=== PATIENT | female | born 1965 | race Two or more races ===

== ENCOUNTER 2018-11-14 06:38 | Day surgery (SDC) | payer OTHER ==
[~2018-11-14] VITALS: Ht 157.5 cm; Wt 53.5 kg
[2018-11-14] VITALS (11 sets, daily range): BP systolic 95–120; BP diastolic 44–80
[~2018-11-14 06:38] MED LIST: ZOLPIDEM TARTRA10 MG ORAL; ceFAZolin 1gm IVPB IVPB ONE; celeBREX 200mg Cap **SURGERY PATIENTS ONLY ORAL ONE; oxyCONTIN 20mg tab ORAL ONE
[2018-11-14] MEDS ORDERED: LR 1000ml 1,000 ML IVLG SCH (07:14)
[2018-11-14] MEDS ORDERED: HYDROcodone/Acetamin 7.5/325 tab ORAL PRN (07:15)
[2018-11-14] MEDS ORDERED: Meperidine 50mg/ml Inj(FOR RIGORS ONLY) IVP PRN (07:15)
[2018-11-14] MEDS ORDERED: Atropine Sulfate 0.4mg/ml inj IVP PRN (07:15)
[2018-11-14] MEDS ORDERED: HYDROcodone/Acetamin 5/325 tab ORAL PRN ×2 (07:15→07:30)
[2018-11-14] MEDS ORDERED: Hydromorphone 0.5mg/0.5ml inj IVP PRN (07:15)
[2018-11-14] MEDS ORDERED: oxyCODONE HCL/Acetaminophen 5/325mg ORAL PRN (07:15)
[2018-11-14] MEDS ORDERED: Midazolam 2mg/2ml Inj IVP PRN (07:15)
[2018-11-14] MEDS ORDERED: Labetalol 5mg/ml 20ml vial IV PRN (07:15)
[2018-11-14] MEDS ORDERED: Metoclopramide 10mg/2ml Inj IVP PRN (07:15)
[2018-11-14] MEDS ORDERED: LORazepam Inj 2mg/ml 1ml IV PRN (07:15)
[2018-11-14] MEDS ORDERED: Ketorolac 30mg Inj IV PRN ×2 (07:15)
[2018-11-14] MEDS ORDERED: Acetaminophen (Non formulary) 100 ML IV ONE (07:15)
[2018-11-14] MEDS ORDERED: DiphenhydrAMINE 50mg/ml Inj IVP PRN (07:15)
[2018-11-14] MEDS ORDERED: fentaNYL 100 mcg/2 mL IV PRN (07:15)
[2018-11-14] MEDS ORDERED: EPINEPHrine 1mg/1ml Amp ONE (07:19)
--- NOTE | 2018-11-14 07:19 | Pre-Procedure Note/Attestation ---
Pre-Procedure Note/Attestation Complete Prior to Procedure Planned Procedure: left Procedure Narrative: knee diagnostic arthroscopy, possible menisectomy, possible synovectomy Indications for Procedure Pre-Operative Diagnosis: left knee internal derangment Attestation I attest that I discussed the nature of the procedure; its benefits; risks and complications; and alternatives (and the risks and benefits of such alternatives ), prior to the procedure, with the patient (or the patient's legal inventory representative). I attest that, if there was a reasonable possibility of needing a blood transfusion, the patient (or the patient's legal inventory representative) was given the [facility] standardized written summary, pursuant to the [place] Blood Safety Act ([place] Health and Safety Code # 1645, as amended). I attest that I re-evaluated the patient just prior to the surgery and that there has been no change in the patient's H&P, except as documented below: Doni Lagunas MD Nov 14, 2018 07:19
[2018-11-14] MEDS ORDERED: Ketorolac 30mg Inj ONE (07:20)
[2018-11-14] MEDS ORDERED: Bupivacaine w/Epi 0.5% 30ml Vial INJ ONE (07:20)
[2018-11-14] MEDS ORDERED: Kenalog-40 1ml Vial ONE (07:20)
[2018-11-14] MEDS ORDERED: Lidocaine 1% 10mg/ml/Epi 0.005mg/ml 30ml vial INJ ONE (07:20)
[2018-11-14] MEDS ORDERED: Bupivacaine 0.25% Inj 30ml INJ ONE (07:20)
[2018-11-14] MEDS ORDERED: Duramorph PF 5mg/10ml amp ONE (07:20)
--- NOTE | 2018-11-14 07:20 | Operative Note - PDOC ---
Operative Note Operative Note Pre-op Diagnosis: left knee internal derangment Procedure: see op report Post-op Diagnosis: same as pre-op plus Operative Findings: consistent w/pre-op dx studies Anesthesia: MAC Specimen: none Complications: none Condition: stable Estimated Blood Loss: none Implant(s) used?: No Doni Lagunas MD Nov 14, 2018 07:20
[2018-11-14] MEDS ORDERED: Sodium Chloride 10ml vial INJ ONE (07:24)
[2018-11-14] MEDS ORDERED: Lidocaine 1% MPF 10mg/ml 5ml ONE (07:24)
[2018-11-14] MEDS ORDERED: Dexamethasone 4mg/ml vial ONE (07:24)
[2018-11-14] MEDS ORDERED: Midazolam 2mg/2ml Inj ONE (07:25)
[2018-11-14] MEDS ORDERED: fentaNYL 100 mcg/2 mL ONE (07:25)
[2018-11-14] MEDS ORDERED: LR 1000ml ONE (07:30)
[2018-11-14] MEDS ORDERED: D5 1/2NS 1,000 ML IV SCH (07:30)
[2018-11-14] MEDS ORDERED: HYDROmorphone 1mg/ml Carpuject SUBQ PRN (07:30)
[2018-11-14] MEDS ORDERED: Propofol 200mg/20ml IV ONE (07:30)
[2018-11-14] MEDS ORDERED: Tylenol #3 tab (300mg/30mg) ORAL PRN (07:30)
[2018-11-14] MEDS ORDERED: NS Irrig 4000ml IRRIG ONE (08:07)
--- NOTE | 2018-11-14 08:31 | Anethesia Preoperative Eval ---
Anesthesia Pre-op PMH/ROS General Date of Evaluation: Nov 14, 2018 Time of Evaluation: 07:32 Anesthesiologist: Jose Alfredo ASA Score: ASA 1 Mallampati Score Class I : Soft palate, uvula, fauces, pillars visible Class II: Soft palate, uvula, fauces visible Class III: Soft palate, base of uvula visible Class IV: Only hard plate visible Mallampati Classification: Class I Surgeon: Bebo Diagnosis: L Knee Pain Surgical Procedure: L Knee Arthroscopy Anesthesia History: none Family History: no anesthesia problems Allergies: Coded Allergies: No Known Allergies (Unverified , 11/13/18) Medications: see eMAR Patient NPO?: Yes Past Medical History Neurologic/Psychiatric: Reports: depression/anxiety PSxH Narrative: Breast Aug Anesthesia Pre-op Phys. Exam Physician Exam Last Vital Signs Date Time Temp Pulse Resp B/P (MAP) Pulse Ox O2 Delivery O2 Flow Rate FiO2 11/14/18 07:10 97.6 65 20 104/65 99 Room Air Constitutional: NAD Neurologic: CN 2-12 intact Cardiovascular: RRR Respiratory: CTA Gastrointestinal: S/NT/ND Airway Exam Mallampati Score: Class I MO: full ROM: full Teeth: intact Anesthesia Pre-op A/P Risk Assessment & Plan Assessment: ASA 1 Plan: GA, SED, GlideScope Go Status Change Before Surgery: No Pre-Antibiotics Dru Gram Ancef IV Given Within 1 Hr of Incision: Yes Time Given: 07:46 Ez Veliz MD Nov 14, 2018 08:31
--- NOTE | 2018-11-14 08:33 | Immediate Post-Op Evaluation ---
Immediate Post-Op Evalulation Immediate Post-Op Evalulation Procedure: L Knee Arthroscopy Date of Evaluation: Nov 14, 2018 Time of Evaluation: 08:45 IV Fluids: 400 LR Blood Products: 0 Estimated Blood Loss: 10 Urinary Output: 0 Blood Pressure Systolic: 96 Blood Pressure Diastolic: 49 Pulse Rate: 70 Respiratory Rate: 16 O2 Sat by Pulse Oximetry: 99 Temperature (Fahrenheit): 98.1 Pain Score (1-10): 2 Nausea: No Vomiting: No Complications 0 Patient Status: awake, reacts, patent, none Hydration Status: adequate Dru Gram Ancef IV Given Within 1 Hr of Incision: Yes Time Given: 07:46 Ez Vleiz MD Nov 14, 2018 08:33
--- NOTE | 2018-11-14 08:35 | 48 Hour Post Anesthesia Eval ---
Post Anesthesia Evaluation Procedure: L Knee Arthroscopy Date of Evaluation: Nov 14, 2018 Time of Evaluation: 10:53 Blood Pressure Systolic: 102 0: 48 Pulse Rate: 57 Respiratory Rate: 18 Temperature (Fahrenheit): 98.4 O2 Sat by Pulse Oximetry: 100 Airway: patent Nausea: No Vomiting: No Pain Intensity: 2 Hydration Status: adequate Cardiopulmonary Status: Stable Mental Status/LOC: patient returned to baseline Follow-up Care/Observations: 0 Post-Anesthesia Complications: 0 Follow-up care needed: ready to discharge Ez Veliz MD Nov 14, 2018 08:35
--- NOTE | 2018-11-14 11:45 | Operative Note - Dictated ---
DATE OF OPERATION: 11/14/2018 PREOPERATIVE DIAGNOSES: 1. Left knee patellofemoral chondral damage. 2. Left knee ACL sprain. 3. Contusion medial, tibial plateau, and lateral femoral condyle. POSTOPERATIVE DIAGNOSES: 1. Grade 3 chondral damage patellofemoral compartment. 2. Grade 4 chondral damage patellofemoral compartment. 3. Hypertrophic fat pad/synovial tissue. PROCEDURES: 1. Left knee arthroscopy and chondroplasty patellofemoral compartment. 2. Synovectomy lateral patellofemoral compartment. SURGEON: Doni Lagunas M.D. ANESTHESIA: General. INDICATION FOR PROCEDURE: The patient is a pleasant female with progressive left knee pain. The patient had an MRI, which showed acute contusion of the medial, tibial plateau and lateral femoral condyle with osteochondral injury in the patellofemoral compartment associated with ACL sprain. She failed conservative treatment, elected to undergo left knee diagnostic arthroscopy, possible synovectomy, and chondroplasty. Risks, limitations, expectations, and complications of the procedure were discussed in detail. All questions addressed. DESCRIPTION OF PROCEDURE: After informed consent was obtained, the patient was brought to the operating room. The patient was placed under general anesthesia. Left leg was prepped and draped in a sterile manner. Time-out was performed. Inferolateral stab incision was then made. Trocar was introduced into the knee joint. There was hypertrophic fat pad and synovial tissue in the patellofemoral compartment. There was evidence of grade 3, grade 4 chondral damage in the patellofemoral compartment. Medial compartment was entered. Medial working portal was established. Synovectomy of the anterior portion of the medial compartment was performed. Medial compartment was entered. The meniscus was probed, noted to be intact. chondral damage in the ACL. There was hypertrophic ligamentum mucosum covering the ACL consistent with ACL previous sprain. The excision of the ligamentum mucosa was performed, better visualized the ACL. The ACL was probed and noted to be intact. The lateral compartment was entered and the excision of the fat pad and synovectomy was extended into the lateral compartment. Lateral compartment was entered, free of meniscal chondral damage. Once that was done, the camera was repositioned in the patellofemoral compartment. Excision of the fat pad and synovectomy was completed. At this point, attention turned to the chondral flap was noted. A gentle chondroplasty in the patellofemoral compartment was performed. Once that was completed, instruments removed. Portal sites were closed with 3-0 Monocryl sutures. Steri-Strips and a sterile dressing were applied. ESTIMATED BLOOD LOSS: None. COMPLICATIONS: None. SPECIMENS: None. IMPLANTS: None. Doni Lagunas M.D. DR: TIERA JOB#: [id number] CC:
== END 2018-11-14 10:20 | disposition home or self-care (01) ==
LOC: SUR 06:38
DX: M67.262 Synovial hypertrophy, not elsewhere classified, left lower leg (principal); S83.512A Sprain of anterior cruciate ligament of left knee, initial encounter; X58.XXXA Exposure to other specified factors, initial encounter; Y92.9 Unspecified place or not applicable; Z79.899 Other long term (current) drug therapy; F32.9 Major depressive disorder, single episode, unspecified; F41.9 Anxiety disorder, unspecified
CPT/HCPCS: 29876; J0171; J0690; J1100; J1885; J2250; J2405; J2704; J3010; J3301; J3490; 94003; 94150